=== PATIENT | female | born 1965 | race Caucasian/White ===

== ENCOUNTER 2021-08-12 01:49 | Emergency (ER) | payer OTHER ==
[~2021-08-12] VITALS: Ht 165.1 cm; Wt 104.3 kg
--- NOTE | 2021-08-12 02:25 | NUR ---
Dr. Savage at bedside for MSE.
--- NOTE | 2021-08-12 02:46 | NUR ---
Xray at bedside.
[2021-08-12] MEDS ORDERED: HYDR-4209 PO (03:27)
--- NOTE | 2021-08-12 03:42 | NUR ---
Patient discharged to home in stable condition. Written and verbal after care instructions given. Patient verbalizes understanding of instructions. Stressed follow up or return to ER for worsening s/s. Patient out of ER with crutches, no falls noted, gait training provided, VSS, all belongings taken.
[2021-08-12 03:43] VITALS: BP 120/80
== END 2021-08-12 03:44 | disposition home or self-care (01) ==
LOC: ER 01:49
DX: S80.01XA Contusion of right knee, initial encounter (principal); W01.0XXA Fall on same level from slipping, tripping and stumbling without subsequent striking against object, initial encounter; Y92.89 Other specified places as the place of occurrence of the external cause; E66.9 Obesity, unspecified; Z68.38 Body mass index [BMI] 38.0-38.9, adult
CPT/HCPCS: A4663